=== PATIENT | male | born 2005 | race Caucasian/White ===

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

== ENCOUNTER → 2023-07-05 | Outpatient (CLI) | payer OTHER | LOC: M WUC 10:12 | PROVIDERS: ATTEND Physician Assistant Medical | DX: M54.50 Low back pain, unspecified (principal) ==

== ENCOUNTER → 2023-07-05 | Outpatient (REF) | payer OTHER ==
[2023-07-05 13:23] LABS: C REACTIVE PROTEIN QUANTITATIV < 0.40 MG/DL (<1.0)
[2023-07-05 13:27] LABS: RHEUMATOID FACTOR QUANT < 3.5 IU/ML (<14)
== END ==
LOC: M LAB REF 11:54
PROVIDERS: ATTEND Physician Assistant Medical
DX: M54.9 Dorsalgia, unspecified (principal); R53.83 Other fatigue; M25.50 Pain in unspecified joint

== ENCOUNTER → 2023-09-14 | Outpatient (CLI) | payer OTHER | LOC: M WUC 14:19 | PROVIDERS: ATTEND Physician Assistant | DX: M25.512 Pain in left shoulder (principal) ==

== ENCOUNTER → 2023-10-03 | Outpatient (CLI) | payer OTHER | LOC: M RAD 13:04 | PROVIDERS: ATTEND Nurse Practitioner Family | DX: R10.30 Lower abdominal pain, unspecified (principal) ==

== ENCOUNTER → 2023-11-08 | Outpatient (CLI) | payer OTHER ==
[~2023-11-08] MED LIST changes: -E-Z-GAS II EFFERVESCENT PACKET (SODIUM BICARB./CITRIC ACID/SIMETHICONE) As Ordered ONE; -E-Z-HD 98% w/w 340GM SUSP BTL As Ordered ONE; -E-Z-PAQUE 96% w/w SUSP 176GM BTL As Ordered ONE; +ISOVUE-370 76% 100ML VIAL ONE
== END ==
LOC: M PLAIMG 07:46
PROVIDERS: ATTEND Nurse Practitioner Family
DX: R19.04 Left lower quadrant abdominal swelling, mass and lump (principal)
CPT/HCPCS: 74177; Q9967

== ENCOUNTER 2024-04-19 18:59 | Emergency (ER) | payer OTHER ==
[~2024-04-19] VITALS: Ht 177.8 cm; Wt 54.5 kg
[2024-04-19] MEDS ORDERED: AMIT10TA7 PO (19:28)
[2024-04-19] MEDS ORDERED: ISOVUE-370 76% 100ML VIAL As Ordered ONE (19:44)
[2024-04-19] MEDS: ONDANSETRON 4MG 2ML VIAL IV ONE (20:01)
[2024-04-19] MEDS: MORPHINE 2 MG/ML 1ML VIAL IV ONE ×2 (20:02→22:21)
[2024-04-19 20:03] LABS: BASO % 0.3 % (0.0-1.0); EOS % 0.2 % (0.0-3.0); HEMATOCRIT 40.4 % (42.0-52.0); HEMOGLOBIN 14.2 g/dl (13.5-17.5); LYMPH # 1.2 10^3/uL (1.5-5.0); MEAN CORPUSCULAR HEMOGLOBIN 30.4 pg (27.0-33.0); MEAN CORPUSCULAR HGB CONC 35.1 g/dl (32.0-36.5); MEAN CORPUSCULAR VOLUME 86.5 fl (80.0-96.0); MONO # 0.8 10^3/uL (0.0-0.8); MONO % 5.8 % (2.0-8.0); NEUTROPHILS # 12.1 10^3/uL (1.5-8.5); NEUTROPHILS % 83.3 % (36.0-66.0); PLATELET COUNT, AUTOMATED 319 10^3/uL (150-450); RED BLOOD COUNT 4.67 10^6/uL (4.30-6.10); WHITE BLOOD COUNT 14.6 10^3/uL (4.0-10.0)
[2024-04-19 20:18] LABS: INR 1.17; PARTIAL THROMBOPLASTIN TIME 25.1 SECONDS (24.8-34.2); PROTHROMBIN TIME 15.2 SECONDS (12.5-14.5)
[2024-04-19 20:24] LABS: CK-MB VALUE MASS < 1.0 NG/ML (<3.6); ETHYL ALCOHOL (ETHANOL) 0.005 % (0.000-0.010); LIPASE 32 U/L (12-53)
[2024-04-19 20:26] LABS: ALBUMIN 4.2 G/DL (3.2-5.2); ALKALINE PHOSPHATASE 63 U/L (40-129); ALT/SGPT 18 U/L (7.0-40); AMYLASE 60 U/L (30-118); AST/SGOT 22 U/L (<34); BILIRUBIN,DIRECT 0.3 MG/DL (<0.4); BILIRUBIN,TOTAL 0.6 MG/DL (0.3-1.2); BLOOD UREA NITROGEN 9 MG/DL (9-23); CALCIUM LEVEL 9.7 MG/DL (8.5-10.1); CARBON DIOXIDE LEVEL 25 MMOL/L (20-31); CHLORIDE LEVEL 107 MMOL/L (98-107); CREATININE FOR GFR 0.88 MG/DL (0.70-1.30); GLUCOSE, FASTING 91 MG/DL (60-100); POTASSIUM SERUM 3.9 MMOL/L (3.5-5.1); SODIUM LEVEL 140 MMOL/L (136-145); TOTAL PROTEIN 7.2 G/DL (5.7-8.2)
[2024-04-19 20:31] LABS: CPK CREATINE PHOSPHOKINASE 119 U/L (46-171); MB/CK RELATIVE INDEX 0.84 (< OR =4)
[2024-04-19] MEDS: KETOROLAC 30 MG/ML 1ML VIAL IV ONE (20:44)
[2024-04-19] MEDS: PERCOCET 5MG/325MG TAB PO ONE (22:22)
[2024-04-20] MEDS: MORPHINE 4 MG/ML 1ML VIAL IV ONE (00:39)
[2024-04-20] MEDS: PERCOCET 5MG/325MG TAB PO ONE (00:39)
[2024-04-20 00:56] VITALS: BP 113/62; TEMP 99.1; O2SAT 97
== END 2024-04-20 01:06 | disposition short-term general hospital (02) ==
LOC: M ED 18:59 → EDBD 18:59 → M ED 04-20 01:06
DX: S32.028A Other fracture of second lumbar vertebra, initial encounter for closed fracture (principal); S32.038A Other fracture of third lumbar vertebra, initial encounter for closed fracture; V49.40XA Driver injured in collision with unspecified motor vehicles in traffic accident, initial encounter; M54.50 Low back pain, unspecified; F39 Unspecified mood [affective] disorder; Y92.410 Unspecified street and highway as the place of occurrence of the external cause; Y93.89 Activity, other specified; Y99.9 Unspecified external cause status; Z79.899 Other long term (current) drug therapy
CPT/HCPCS: 70450; 71260; 72125; 72128; 72131; 73030; 73590; 74177; 80048; 80076; 82077; 82150; 82550; 82553; 83605; 83690; 84484; 85025; 85610; 85730; 86850; 86900; 86901; 93041; 94760; 96374; 96375; 96376; 99285; J1885; J2405; Q9967

== ENCOUNTER → 2025-04-23 | Outpatient (CLI) | payer OTHER ==
[~2025-04-23] MED LIST changes: +AMIT10TA11 PO; -ISOVUE-370 76% 100ML VIAL ONE
== END ==
LOC: M WUC 09:49
PROVIDERS: ATTEND Physician Assistant
DX: M25.572 Pain in left ankle and joints of left foot (principal); M20.12 Hallux valgus (acquired), left foot